=== PATIENT | female | born 1975 | race Caucasian/White ===

== ENCOUNTER 2017-07-13 10:55 | Emergency (ER) | payer OTHER ==
[~2017-07-13] VITALS: Ht 162.6 cm; Wt 71.2 kg
[2017-07-13] MEDS ORDERED: IBUPROFEN 200200 M1 PO (11:02)
[2017-07-13 12:37] LABS: URINE BILIRUBIN NEGATIVE (Negative); URINE BLOOD NEGATIVE (Negative); URINE COLOR YELLOW; URINE GLUCOSE-RANDOM* NEGATIVE (Negative); URINE KETONES NEGATIVE (Negative); URINE NITRITE NEGATIVE (Negative); URINE PROTEIN (DIPSTICK) NEGATIVE (Negative); URINE SPECIFIC GRAVITY 1.015 (1.003-1.035); URINE UROBILINOGEN 0.2 E.U./dl (0.2-1.0)
[2017-07-13] MEDS ORDERED: MEDROLDOSEPACK PO (12:56)
[2017-07-13] MEDS ORDERED: TIZANIDINE HCL4 MG PO (12:56)
[2017-07-13] MEDS ORDERED: IBUPROFEN 600600 M1 PO (12:56)
[2017-07-13 13:51] VITALS: BP 128/89
== END 2017-07-13 12:56 | disposition home or self-care (01) ==
LOC: ER 10:55
PROVIDERS: Nurse Practitioner
DX: M54.16 Radiculopathy, lumbar region (principal); M54.31 Sciatica, right side; F10.99 Alcohol use, unspecified with unspecified alcohol-induced disorder